=== PATIENT | female | born 1940 ===

== ENCOUNTER 2021-07-27 08:50 | Day surgery (SDC) | payer MEDICARE ==
[~2021-07-27 08:50] MED LIST: Acetaminophen/HYDROcodone 325-5 MG Tab PO PRN; Clindamycin Phosphate 900 MG/6 ML SDV IV ONE; Lactated Ringers 1,000 ML IV SCH; Sodium Chloride 0.9% 10 ML Syringe FLUSH PRN; ceFAZolin 1 GM in Sodium Chloride 0.9% 50 ML IV ONE
[2021-07-27] MEDS ORDERED: Lidocaine 0.5% 50 ML SDV ONE (10:00)
[2021-07-27] MEDS ORDERED: Propofol 200 MG/20 ML SDV ONE (10:00)
[2021-07-27] MEDS ORDERED: Midazolam 1 MG/ML 2 ML SDV ONE (10:00)
== END 2021-07-27 11:50 | disposition home or self-care (01) ==
LOC: LB.SDS 08:50
PROVIDERS: ATTEND Orthopaedic Surgery
DX: G56.02 Carpal tunnel syndrome, left upper limb (principal); E03.9 Hypothyroidism, unspecified; Z88.0 Allergy status to penicillin; Z79.890 Hormone replacement therapy
CPT/HCPCS: A9270-GY; J2250; J2704; J3490; J7120

== ENCOUNTER 2021-09-21 08:02 | Day surgery (SDC) | payer MEDICARE ==
[~2021-09-21 08:02] MED LIST changes: -Acetaminophen/HYDROcodone 325-5 MG Tab PO PRN; -Clindamycin Phosphate 900 MG/6 ML SDV IV ONE
[2021-09-21] MEDS ORDERED: Clindamycin Phosphate 900 MG/6 ML SDV IV ONE (08:15)
[2021-09-21] MEDS: Clindamycin Phosphate 900 MG/6 ML SDV ONE (08:16)
[2021-09-21] MEDS: Lactated Ringers 1,000 ML IV SCH (09:01)
[2021-09-21] MEDS ORDERED: Lidocaine 0.5% 50 ML SDV ONE (09:45)
[2021-09-21] MEDS ORDERED: Propofol 200 MG/20 ML SDV ONE (09:45)
[2021-09-21] MEDS: Acetaminophen/HYDROcodone 325-5 MG Tab PO PRN (10:17)
== END 2021-09-21 11:00 | disposition home or self-care (01) ==
LOC: LB.SDS 08:02
PROVIDERS: ATTEND Orthopaedic Surgery
DX: G56.01 Carpal tunnel syndrome, right upper limb (principal); I10 Essential (primary) hypertension; Z88.0 Allergy status to penicillin
CPT/HCPCS: A9270-GY; J2704; J3490; J7120